=== PATIENT | male | born 2005 | race Two or more races ===

== ENCOUNTER 2024-10-26 05:36 | Emergency (ER) | payer OTHER ==
[~2024-10-26] VITALS: Ht 170.2 cm; Wt 107.7 kg
[2024-10-26 07:43] VITALS: BP 136/85; PULSE 59; RESP 18; TEMP 97.6; O2SAT 98
[2024-10-26] MEDS ORDERED: NAPR-746 PO (08:00)
[2024-10-26] MEDS ORDERED: LIDO5DIS21 TOP (08:00)
[2024-10-26] MEDS ORDERED: METH-1181 PO (08:00)
--- NOTE | 2024-10-26 08:01 | ED.PDOC ---
Back pain HPI HPI Comments 18 year male w/ no med hx presents for back pain x 1 day after walking around the house. Possible cause: skateboarding day before, denies any fall. Worsens w/ lateral movements Denies history of chronic steroid use or history of osteoporosis Denies any history of cancer Denies fevers chills night sweats nausea vomiting unintentional weight loss Denies IV drug use history of HIV/TB Denies abdominal "tearing" pain Denies syncope Denies urinary incontinence or urinary changes Denies numbness tingling of the groin or inner thigh Denies previous back procedure or surgery Chief Complaint: Back Pain Time Seen by MD: 07:26 Reviewed Notes: Nurses Notes, Medications, Allergies Allergies: Coded Allergies: NO KNOWN ALLERGIES (Unverified , 10/26/24) Home Meds Active Scripts Naproxen (Naproxen) 500 Mg Tab, 500 MG PO BIDPC for 14 Days, #28 TAB 0 Refills Prov:SOTERO WEBBER NP 10/26/24 Lidocaine (LIDODERM 5% TOPICAL PATCH) 1 Patch Ph, 1 PATCH TOP DAILY for 10 Days, #30 PATCH 0 Refills Prov:SOTERO WEBBER NP 10/26/24 Methocarbamol (Methocarbamol) 500 Mg Tab, 500 MG PO BIDP PRN for 14 Days, #28 TAB 0 Refills Prov:SOTERO WEBBER NP 10/26/24 Information Source: Patient Mode of Arrival: Ambulatory Family History Family History: Reviewed,noncontributory to illness Social History Smoker: Non-Smoker Alcohol: Denies ETOH Use Drugs: Denies Drug Use All Other Systems: Reviewed and Negative (per hpi) Physical Exam General Appearance: No Apparent Distress, Normal HEENT: Normal ENT Inspection, Pharynx Normal, TMs Normal Neck: Full Range of Motion, Non-Tender, Normal, Normal Inspection Respiratory: Chest Non-Tender, Lungs Clear, No Accessory Muscle Use, No Respiratory Distress, Normal Breath Sounds Cardiovascular: No Edema, No JVD, No Murmur, No Gallop, Normal Peripheral Pulses, Regular Rate/Rhythm Breast Exam: Deferred Gastrointestinal: No Organomegaly, Non Tender, No Pulsatile Mass, Normal Bowel Sounds, Soft Genitalia: Deferred Pelvic: Deferred Rectal: Deferred Extremities: No calf tenderness, Normal capillary refill, Normal inspection, Normal range of motion, Non-tender, No pedal edema Musculoskeletal : Extremity Location: Back (no gross abnormality on inspection. no midline TTP) Apperance: Normal Neurologic: Alert, park superintendent II-XII nml as Tested, No Motor Deficits, Normal Affect, Normal Mood, No Sensory Deficits Cerebellar Function: Normal Reflexes: Normal Skin: Dry, Normal Color, Warm Lymphatic: No Adenopathy Was a procedure done? Was a procedure done?: No Back Pain Differential Dx Differential Diagnosis: Musculoskeletal Pain X-Ray, Labs, Meds, VS Vital Signs Date Time Temp Pulse Resp B/P (MAP) Pulse Ox O2 Delivery O2 Flow Rate FiO2 10/26/24 07:43 97.6 59 18 136/85 (102) 98 97.6 10/26/24 07:43 59 18 98 Room Air 10/26/24 05:45 97.6 59 18 136/85 (102) 98 Current Medications Medications (Trade) Dose Ordered Sig/Teodora Route Start Time Stop Time Status Last Admin Ketorolac Tromethamine (Toradol Injection) 30 mg ONCE ONCE IM 10/26/24 08:00 10/26/24 08:06 DC 10/26/24 08:12 X-Ray, Labs, Meds, VS Comment History and physical exam consistent with musculoskeletal pain. No red flags Supportive care advised (rest, ice, heat, NSAIDs, stretching exercises) Massage muscles with cold pack or ice for 20 minutes 4 times per day. Usually most useful if there is swelling during the first 48 hours Heating pad on the most painful area for 20 minutes to relieve muscle spasm Sleep and the most comfortable sleeping position (usually on the side with knees bent) Light stretching, no strenuous activity, avoid frequent bending, avoid carrying heavy objects Discussed possible benefits of yoga and acupuncture Return precautions discussed including Inability to walk/bear weight Paresthesia/weakness/leg pain Fecal/urinary incontinence Any worsening symptoms Time of 1ST Reevaluation: 08:00 Reevaluation 1ST: Improved Patient Education/Counseling: Diagnosis, Treatment Family Education/Counseling: Diagnosis, Treatment Departure 1 Departure Time of Disposition: 08:01 Impression: Primary Impression: Lumbar strain Qualified Codes: S39.012A - Strain of muscle, fascia and tendon of lower back, initial encounter Additional Impression: Pain in right paraspinal region Disposition: 01 HOME / SELF CARE / HOMELESS Condition: Stable e-Prescriptions Naproxen (Naproxen) 500 Mg Tab 500 MG PO BIDPC for 14 Days, #28 TAB 0 Refills Prov: SOTERO WEBBER LABOR RELATIONS OR PERSONNEL NEGOTIATOR 10/26/24 Lidocaine (LIDODERM 5% TOPICAL PATCH) 1 Patch Ph 1 PATCH TOP DAILY for 10 Days, #30 PATCH 0 Refills Prov: SOTERO WEBBER LABOR RELATIONS OR PERSONNEL NEGOTIATOR 10/26/24 Methocarbamol (Methocarbamol) 500 Mg Tab 500 MG PO BIDP PRN for 14 Days, #28 TAB 0 Refills Prov: SOTERO WEBBER NP 10/26/24 Critical Care Note Critical Care Time?: No Stability Stability form required: No Heart Score Heart Score: Heart Score Response (Comments) Value History N/A 0 EKG N/A 0 Age N/A 0 Risk Factors N/A 0 Troponin N/A 0 Total 0 SOTERO WEBBER LABOR RELATIONS OR PERSONNEL NEGOTIATOR Oct 26, 2024 08:01
[2024-10-26] MEDS: KETOROLAC TROMETH 30 MG/ML 1ML VIAL IM ONE (08:12)
== END 2024-10-26 08:33 | disposition home or self-care (01) ==
LOC: ER 05:36
DX: S39.012A Strain of muscle, fascia and tendon of lower back, initial encounter (principal); M54.6 Pain in thoracic spine; X58.XXXA Exposure to other specified factors, initial encounter; Y93.89 Activity, other specified; Y92.89 Other specified places as the place of occurrence of the external cause; Y99.8 Other external cause status
CPT/HCPCS: 96372; 99283; J1885

== ENCOUNTER 2025-09-02 02:11 | Emergency (ER) | payer MEDICAID, OTHER ==
[~2025-09-02] VITALS: Ht 172.7 cm; Wt 118.0 kg
[~2025-09-02 02:11] MED LIST: LIDO5DIS21 TOP; METH-1181 PO; NAPR-746 PO
[2025-09-02 02:12] VITALS: BP 150/64; PULSE 104; RESP 20; TEMP 98.8; O2SAT 96
--- NOTE | 2025-09-02 02:46 | DVH ---
MEDICAL RECORDS NUMBER: [id number] PROCEDURE: XY L ANKLE 3 VIEW DATE: 09/02/2025 02:39 AM HISTORY: SKATEBOARDING ACCIDENT COMPARISON: None FINDINGS/IMPRESSION: Oblique fracture is seen of the distal fibula with mild displacement of the fragments. Associated soft tissue swelling is noted. Other bones appear to be intact.
--- NOTE | 2025-09-02 02:54 | ED.PDOC ---
Back pain HPI HPI Comments 19-year-old male presents to the ED chief complaint left ankle pain. Patient states injured his left ankle while skateboarding last night. Sharp pain to left ankle 6/10 on pain scale. Denies numbness or weakness or any other concerns at this time. Chief Complaint: Lower Extremity Time Seen by MD: 02:21 Reviewed Notes: Nurses Notes, Medications, Allergies Allergies: Coded Allergies: NO KNOWN ALLERGIES (Unverified , 10/26/24) Home Meds Active Scripts Naproxen (Naproxen) 500 Mg Tab, 500 MG PO BIDPC for 14 Days, #28 TAB 0 Refills Prov:SOTERO WEBBER VISITING TEACHER 10/26/24 Lidocaine (LIDODERM 5% TOPICAL PATCH) 1 Patch Ph, 1 PATCH TOP DAILY for 10 Days, #30 PATCH 0 Refills Prov:SOTERO WEBBER VISITING TEACHER 10/26/24 Methocarbamol (Methocarbamol) 500 Mg Tab, 500 MG PO BIDP PRN for 14 Days, #28 TAB 0 Refills Prov:SOTERO WEBBER VISITING TEACHER 10/26/24 Information Source: Patient Mode of Arrival: Ambulatory Past Medical History PAST MEDICAL HISTORY: Denies Surgical History: Denies all surgeries Family History Family History: Reviewed,noncontributory to illness Social History Smoker: Non-Smoker Alcohol: Denies ETOH Use Drugs: Denies Drug Use All Other Systems: Reviewed and Negative (See HPI) Physical Exam General Appearance: No Apparent Distress, Normal HEENT: Pharynx Normal Neck: Full Range of Motion, Non-Tender Respiratory: Lungs Clear, No Respiratory Distress, Normal Breath Sounds Cardiovascular: No Murmur, Normal Peripheral Pulses, Regular Rate/Rhythm Breast Exam: Deferred Gastrointestinal: Non Tender, Soft Genitalia: Deferred Pelvic: Deferred Rectal: Deferred Extremities: Normal capillary refill, Normal range of motion, No pedal edema Musculoskeletal : Location: Left Extremity Location: Ankle (Moderate tenderness palpated lateral aspect with mild edema no noted open lesions or lacerations strength sensory and motion intact positive pedal pulse) Apperance: Normal Neurologic: Alert, No Motor Deficits, Normal Affect, Normal Mood, No Sensory Deficits Cerebellar Function: Normal Reflexes: NOT DONE Skin: Dry, Normal Color, Warm Lymphatic: No Adenopathy Was a procedure done? Was a procedure done?: No Back Pain Differential Dx Differential Diagnosis: Fracture, Musculoskeletal Pain X-Ray, Labs, Meds, VS Vital Signs Date Time Temp Pulse Resp B/P (MAP) Pulse Ox O2 Delivery O2 Flow Rate FiO2 09/02/25 02:12 98.8 104 20 150/64 96 98.8 09/02/25 02:12 Room Air X-Ray, Labs, Meds, VS Comment FINDINGS/IMPRESSION: Oblique fracture is seen of the distal fibula with mild displacement of the fragments. Associated soft tissue swelling is noted. Other bones appear to be intact. Patient placed in stirrup and posterior short-leg splint crutches provided. Advised on rice. Script trial of ibuprofen advised take medication as prescribed side effects discussed. Advised to follow up with his PCP for referral to orthopedic surgeon for consult and evaluation. ER return precautions given patient indicates understanding agrees with discharge plan of care. Images Reviewed?: Images reviewed and evaluated by me Time of 1ST Reevaluation: 02:21 Reevaluation 1ST: Unchanged Time of 2ND Reevaluation: 03:07 Reevaluation 2ND: Improved Patient Education/Counseling: Diagnosis, Treatment, Need For Follow Up Family Education/Counseling: Diagnosis, Treatment SEPSIS Sepsis Screen Date sepsis recognized/suspect: Sep 02, 2025 Time Sepsis recognized/suspect: 214 Recent Procedure: No On Antibiotic Therapy: No Respiratory Rate >20: No Heart Rate >90: No Temp<36 C (96.8 F) or >38.3 C: No SBP <90 or MAP <65 mmHG: No New Acute Mental Status Change: No Is the patient on CPAP, BIPAP,: No Physician Orders L Ankle 3 View (09/02/25 02:18) Splints (09/02/25 ) Vital Signs Date Time Temp Pulse Resp B/P (MAP) Pulse Ox O2 Delivery O2 Flow Rate FiO2 09/02/25 02:12 98.8 104 20 150/64 96 98.8 09/02/25 02:12 Room Air Departure 1 Departure Time of Disposition: 03:07 Impression: Primary Impression: Fracture of distal fibula Qualified Codes: S82.832A - Other fracture of upper and lower end of left fibula, initial encounter for closed fracture Disposition: HOME / SELF CARE / HOMELESS Condition: Stable e-Prescriptions Ibuprofen (Ibuprofen) 800 Mg Tab 800 MG PO Q8HP PRN for 7 Days, #21 TAB Prov: ALEXANDRIA LUCIA 09/02/25 Discharged With: Friend Critical Care Note Critical Care Time?: No Stability Stability form required: ALEXANDRIA Raymond [facility] Sep 02, 2025 02:54
[2025-09-02] MEDS ORDERED: IBUP-1456 PO (03:07)
[2025-09-02] MEDS: KETOROLAC TROMETH 60MG/2ML VIAL IM ONE (03:13)
== END 2025-09-02 03:44 | disposition home or self-care (01) ==
LOC: ER 02:11
DX: S82.832A Other fracture of upper and lower end of left fibula, initial encounter for closed fracture (principal); X58.XXXA Exposure to other specified factors, initial encounter; Y93.51 Activity, roller skating (inline) and skateboarding; Y92.89 Other specified places as the place of occurrence of the external cause; Y99.8 Other external cause status
CPT/HCPCS: 29515; 73610; 96372; 99283; J1885